=== PATIENT | male | born 2000 | race Caucasian/White ===

== ENCOUNTER → 2021-07-13 | Outpatient (CLI) | payer OTHER ==
--- NOTE | 2021-07-14 11:57 | CT ---
EXAMINATION TYPE: CT iac wo con DATE OF EXAM: 07/13/2021 COMPARISON: None HISTORY: Hearing issues, clogged feeling RT ear CT DLP: 142.70 mGycm Automated exposure control for dose reduction was used. Contrast: None Technique: Axial images 1 mm thick sections. Reconstructed images in the coronal plane. FINDINGS: There is some mucosal thickening through scattered ethmoid air cells. Remaining paranasal sinuses are clear within the [id number]. Mastoid air cells are clear. No septal destruction is evident. The internal auditory canals appear normal without expansion or erosion. Semicircular canals are norm al. Cochlea are normal middle ears appear clear. Incus and malleus have normal orientation. External auditory canals as visualized appear normal scutum are normal. Adnexa are clear. Cerebellopontine ang les are unremarkable. Study is without intravenous contrast. Small intracanalicular schwannomas may not be visualized. Thes e can be better evaluated with MRI with contrast and additional workup is required. IMPRESSION: 1. NORMAL CT INTERNAL AUDITORY CANAL STUDY
== END | disposition home or self-care (01) ==
LOC: RADCTMAIN 17:48
PROVIDERS: ATTEND Otolaryngology
DX: H93.8X9 Other specified disorders of ear, unspecified ear (principal)
CPT/HCPCS: 70480